=== PATIENT | female | born 1975 | race African-American/Black ===

== ENCOUNTER 2019-07-20 10:16 | Outpatient (CLI) | payer OTHER ==
[~2019-07-20 10:16] MED LIST: Iopamidol 370 76% 100 ML VIAL ONE
--- NOTE | 2019-07-20 11:11 | CT ---
CT ABDOMEN WITH AND WITHOUT CONTRAST: CLINICAL HISTORY: Uncontrolled hypertension. COMPARISON: No prior imaging comparison. FINDINGS: Precontrast imaging reveals hepatic steatosis. There is a fat-containing periumbilical hernia. Multiple bilateral renal cysts and additional hypodensities, too small to further characterize are pr esent. There is no hydronephrosis of either kidney. The contrast opacified right ureter is normal in caliber. Contrast opacified portions of the left ureter are also of normal caliber. Urinary bladde r is grossly unremarkable. Arterial phase imaging reveals normal caliber of the abdominal aorta. There is no obvious, high-grade renal artery stenosis present, bilaterally. Origins of the celiac axis, and superior mesenteric artery are patent. Inferior mesenteric artery origin is also patent. Spleen, pancreas, and adrenal glands are unremarkable. No abnormal bowel dilatation. Low-attenuation and mild prominence of the colonic wall suggests some mucosal fat deposition that can be seen in the setting of sequelae from prior inflammatory events. Correlate clinically. The bowel is limited in assessment without enteric contrast administration No acute osseous pathology. IMPRESSION: 1. No evidence of renal artery stenosis. 2. Multiple bilateral renal cysts and additional hypodensities too small to definitively characterize . Consider sonographic follow-up for continued surveillance. 3. Hepatic steatosis. 4. Additional details are described above. Transcribed Date/Time: 07/20/2019 11:55 AM
== END 2019-07-20 10:17 | disposition home or self-care (01) ==
LOC: NAV CT 10:16
PROVIDERS: ATTEND Internal Medicine
DX: I10 Essential (primary) hypertension (principal); N28.1 Cyst of kidney, acquired; K76.0 Fatty (change of) liver, not elsewhere classified; R93.421 Abnormal radiologic findings on diagnostic imaging of right kidney; R93.422 Abnormal radiologic findings on diagnostic imaging of left kidney
CPT/HCPCS: 74178; Q9967